=== PATIENT | female | born 1960 | race Caucasian/White ===

== ENCOUNTER → 2017-12-18 07:11 | Outpatient (CLI) | payer BC, SELFPAY | PROVIDERS: Family Provider Family Medicine; PCP Family Medicine; Visit Provider Surgery | DX: Z01.818 Encounter for other preprocedural examination (principal) ==

== ENCOUNTER → 2020-05-06 12:33 | Outpatient (CLI) | payer BC, SELFPAY | PROVIDERS: PCP Family Medicine; Referring Provider Family Medicine; Visit Provider Family Medicine | DX: Z11.59 Encounter for screening for other viral diseases (principal) | CPT/HCPCS: 87635; U0003 ==

== ENCOUNTER → 2020-05-20 10:30 | Outpatient (CLI) | payer BC, SELFPAY ==
[2017-11-14 13:07] VITALS: BMI 29.7
== END ==
PROVIDERS: Referring Provider Family Medicine; Visit Provider Family Medicine
DX: Z11.59 Encounter for screening for other viral diseases (principal)
CPT/HCPCS: 87635; U0003

== ENCOUNTER → 2020-06-03 12:13 | Outpatient (CLI) | payer BC, SELFPAY ==
[2017-11-14 13:07] VITALS: BMI 29.7
== END ==
PROVIDERS: Referring Provider Family Medicine; Visit Provider Family Medicine
DX: Z03.818 Encounter for observation for suspected exposure to other biological agents ruled out (principal)
CPT/HCPCS: 87635; U0003

== ENCOUNTER → 2020-06-17 10:45 | Outpatient (CLI) | payer BC, SELFPAY ==
[2017-11-14 13:07] VITALS: BMI 29.7
== END ==
PROVIDERS: Referring Provider Family Medicine; Visit Provider Family Medicine
DX: Z03.818 Encounter for observation for suspected exposure to other biological agents ruled out (principal)
CPT/HCPCS: 87635; U0003

== ENCOUNTER → 2020-07-01 13:29 | Outpatient (CLI) | payer BC, SELFPAY ==
[2017-11-14 13:07] VITALS: BMI 29.7
== END ==
PROVIDERS: Referring Provider Family Medicine; Visit Provider Family Medicine
DX: Z03.818 Encounter for observation for suspected exposure to other biological agents ruled out (principal)
CPT/HCPCS: 87635; U0003